=== PATIENT | female | born 1990 | race Caucasian/White ===

== ENCOUNTER 2022-08-04 12:32 | Emergency (ER) | payer OTHER, SELFPAY ==
[2022-08-04 12:44] VITALS: BP 127/81; PULSE 73; RESP 16; TEMP 36.6; O2SAT 100
--- NOTE | 2022-08-04 12:47 | ED.WOUNDLAC ---
HPI - Wound/Laceration General Chief Complaint: Wound/Laceration Stated Complaint: rt hand ring finger injury Time Seen by Provider: 08/04/22 12:55 Source: patient and RN notes reviewed Mode of arrival: ambulatory Limitations: no limitations History of Present Illness HPI narrative: 32-year-old female presents concern for laceration to the 4th digit of the right hand on the palmar aspect. Reports she was at work, dropped a knife and tried to catch it and cut her hand. She is not up-to-date on her tetanus vaccination. She denies decreased sensation, strength, range of motion of the digit Extremity Location: Right: hand Related Data Home Medications Medication Instructions Recorded Confirmed No Home Medications 08/04/22 08/04/22 Allergies Allergy/AdvReac Type Severity Reaction Status Date / Time cephalexin [From Keflex] Allergy Hives Verified 08/04/22 12:53 Review of Systems Review of Systems: CONSTITUTIONAL: Denies malaise, chills, sweats, or fever. SKIN: Reports laceration 4th digit the right hand MUSCULOSKELETAL: Denies muscle skeletal pain NEUROLOGIC: Denies numbness, weakness All systems reviewed & are unremarkable except as noted in HPI and below PMFSH Comments At time of signature, agree with nursing past medical, surgical, social and family history. There is no relevant family history pertinent to the presenting complaint Exam Narrative: GENERAL: Well-appearing, well-nourished, and in no acute distress. HEAD: Normocephalic EYES: PERRLA, conjunctivae clear NECK: Supple. CHEST: Speaks in full sentences. No respiratory distress. HEART: Regular rate and rhythm. Normal and equal peripheral pulses. EXTREMITIES: 4th digit of right hand has normal strength and sensation. 5/5 strength with digit flexion, extension. Range of motion normal. No clubbing, cyanosis, or edema noted. No tenderness. Normal digital cascade with flexion of fingers, median, ulnar and radial nerve intact. No scissoring. Normal thumb opposition. Good capillary refill and radial pulse. Distal capillary refill less than 3 seconds. Patient is right/left hand dominant SKIN: Warn, dry, intact, pink. 1 cm linear laceration through the dermis, not gaping, on the palmar aspect of the 4th digit of the right hand above and not involving the DIP joint NEURO: Alert and oriented x3. PSYCH: Normal mood and affect Course Course Emergency Course: Patient is aware of diagnosis, understands and agrees to treatment plan. Anticipatory guidance given. Patient agrees to follow-up as directed and is aware of reasons to seek care at the emergency department. Portions of this record may have been created with voice recognition software Level of Care: Express Care Visit Vital Signs Vital signs: Vital Signs Temperature 97.8 F 08/04/22 12:44 Pulse Rate 73 08/04/22 12:44 Respiratory Rate 16 08/04/22 12:44 Blood Pressure 127/81 08/04/22 12:44 Pulse Oximetry 100 08/04/22 12:44 Temperature 97.8 F 08/04/22 12:44 Pulse Rate 73 08/04/22 12:44 Respiratory Rate 16 08/04/22 12:44 Blood Pressure 127/81 08/04/22 12:44 Pulse Oximetry 100 08/04/22 12:44 Reviewed. Procedures Laceration Laceration 1: Date: 08/04/22 Time: 13:03 Site: hand Side (If applicable): right Size (cm): 1 Description: linear Depth: simple, single layer Pre-repair: wound explored and irrigated ====== Skin Level ====== Skin layer closed with: dermabond and steri strips ====== Subcutaneous Layer ====== ====== Muscle Layer ====== ====== Tendon Layer ====== MDM - Wound/Laceration MDM Narrative Medical decision making narrative: Wound explored for foreign body and copious irrigation provided with no evidence of FB. Discussed the potential of retained foreign body with the patient and signs/symptoms that should prompt the patient to immediately go to the ED for reevaluation.
[2022-08-04] MEDS: TETANUS,DIPHTHERIA,AC PERTUSSIS ADULT (0.5 ML) BOOSTRIX IM (13:22)
== END 2022-08-04 13:30 | disposition home or self-care (01) ==
PROVIDERS: Emergency Provider Nurse Practitioner
DX: S61.214A Laceration without foreign body of right ring finger without damage to nail, initial encounter (principal); W26.0XXA Contact with knife, initial encounter; Z23 Encounter for immunization
CPT/HCPCS: 12001; 90471; 90715; 99213; G0463